=== PATIENT | male | born 1980 | race Caucasian/White ===

== ENCOUNTER 2023-08-17 08:49 | Emergency (ER) | payer OTHER, SELFPAY ==
[2023-08-17 08:49] VITALS: BP 140/90; PULSE 95; RESP 17; TEMP 36.7; O2SAT 97
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
[2023-08-17] MEDS: Omnipaque 350 MG/ML 100 ML BTL IJ (09:14)
[2023-08-17 09:16] LABS: Abs Immature Grans 0.03 10^3/uL (0.0-0.06); Absolute Basophil Count 0.03 10^3/uL (0.0-0.2); Absolute Lymphocyte Count 1.78 10^3/uL (1.2-3.4); Absolute Monocyte Count 0.33 10^3/uL (0.1-0.8); Absolute Neutrophil Count 4.33 10^3/uL (1.2-6.7); Basophils % 0.4; HCT 51.4 % (40.0-50.0); Immature Grans % 0.4; Lymphocytes % 26.6; MCV 86 fL (80-95); MPV 9.7 fL (8.0-11.0); Monocytes % 4.9; Neutrophils % 64.7; Platelet Count 305 10^3/uL (130-400); RBC 6.01 10^6/uL (4.36-5.78); RDW 13.5 % (11.8-14.1); RDW-SD 42.2 fL
[2023-08-17 09:36] LABS: ALT 82 U/L (16-63); AST 31 U/L (15-37); Albumin 3.7 g/dL (3.4-5.0); Alkaline Phosphatase 70 U/L (46-116); Anion Gap 5.8 mmol/L (3-11); BUN 11 mg/dL (7-18); Bilirubin, Total 1.4 mg/dL (0.2-1.0); CO2 28.2 mmol/L (21.0-32.0); CREATININE 1.1 mg/dL (0.70-1.30); Calcium 9.1 mg/dL (8.5-10.1); Chloride 104 mmol/L (98-107); Estimated GFR 85.95 (mL/min/1.73m2); Glucose 111 mg/dL (74-106); Potassium 3.7 mmol/L (3.5-5.1); Sodium 138 mmol/L (136-145); Total Protein 7.5 g/dL (6.4-8.2)
[2023-08-17 09:45] LABS: Diff Comment RBC Morph Reviewed; RBC Morphology Normal
[2023-08-17 09:51] VITALS: BP 126/82; PULSE 88; RESP 16; O2SAT 97
[2023-08-17] MEDS: Ketorolac 15 MG/ML VIAL 7.5 MG IVP (10:10)
[2023-08-17] MEDS: Orphenadrine 60 MG/2 ML VIAL IVP (10:11)
[2023-08-17 10:17] VITALS: BP 116/84; PULSE 84; RESP 15; O2SAT 97
== END 2023-08-17 10:35 | disposition home or self-care (01) ==
PROVIDERS: Physician Assistant; Emergency Provider Student in an Organized Health Care Education/Training Program
DX: M54.2 Cervicalgia (principal); M54.6 Pain in thoracic spine; S00.31XA Abrasion of nose, initial encounter; V48.5XXA Car driver injured in noncollision transport accident in traffic accident, initial encounter
CPT/HCPCS: 74177; 80053; 86850; 86900; 86901; 96374; 96375; 99285; J2360; 71260; 72125; 85025; 99284; J1885; J3490

== ENCOUNTER 2025-07-05 10:10 | Day surgery (SDC) | payer OTHER, SELFPAY ==
[2025-07-05] VITALS (17 sets, daily range): BP systolic 116–136; BP diastolic 60–85; PULSE 83–96; RESP 15–25; TEMP 36.5–37.4; O2SAT 93–96; BMI 38.5
[2025-07-05] MEDS: Tropicam./Phenyleph. (1/2.5%) 5 ML BTL ×3 (10:42→11:02)
--- NOTE | 2025-07-05 11:00 | W.PREOPHP ---
Assessment and Plan Assessment and plan (1) Posterior subcapsular age-related cataract of left eye: Status: Acute Assessment and plan: Assessment: Visually significant cataract of the left eye. Plan: Cataract extraction with lens implantation of the left eye. History of Present Illness History of Present Illness Chief Complaint: Progressive decreased vision, left eye Narrative: The patient is a 45-year-old male with history of progressive decreased vision in his left eye. He notes significant difficulty with glare at night and has difficulty driving. Reading is very difficult. His depth perception is off and he feels things are very dim and dark. Review of Systems All systems reviewed & are unremarkable except as noted in HPI and below PFSH All Active Problems (Reviewed 07/05/25 @ 11: by Angelo Goodwin MD) Posterior subcapsular age-related cataract of left eye (Acute) Medical History (Reviewed 07/05/25 @ 11: by Angelo Goodwin MD) Hypogonadism in male High cholesterol PTSD (post-traumatic stress disorder) Post [place] TBI (traumatic brain injury) Depression Acid reflux Diverticulitis being tx with abx Surgical History (Reviewed 07/05/25 @ 11: by Angelo Goodwin MD) Hx of colonoscopy Social History (Reviewed 07/05/25 @ 11: by Angelo Goodwin MD) Smoking/Tobacco Use Status: Former Tobacco Use Quit Date: 09/26/09 Smoking risk assessment performed?: Yes Alcohol Intake: former Drug use: Daily Substance use type: marijuana Details: t-2 smoked marijuana Housing: house Do you feel safe at home: Yes Do you feel safe in your relationship?: Yes Meds Allergies and Home Medications Allergies Allergy/AdvReac Type Severity Reaction Status Date / Time bee pollen Allergy Anaphylaxis Unverified 07/05/25 10:47 bee venom protein (honey bee) Allergy Anaphylaxis Unverified 07/05/25 10:47 mold Allergy Anaphylaxis Unverified 07/05/25 10:47 pollen extracts Allergy Anaphylaxis Unverified 07/05/25 10:47 Home Medications ?Medication ?Instructions ?Recorded ?Confirmed ?Type ciprofloxacin HCl 500 mg tablet 500 mg PO Q12H 07/02/25 07/05/25 History dibucaine 1 % topical ointment 1 applic topical QID PRN 07/02/25 07/05/25 History epinephrine 0.3 mg/0.3 mL 0.3 mg IM ONCE PRN 07/02/25 07/05/25 History injection, auto-injector (EpiPen) famotidine 10 mg tablet 10 mg PO BID 07/02/25 07/05/25 History guanfacine 1 mg tablet 1 mg PO DAILY 07/02/25 07/05/25 History hydrocortisone 1 % topical cream 1 applic topical BID PRN 07/02/25 07/05/25 History metronidazole 500 mg tablet 500 mg PO TID 07/02/25 07/05/25 History testosterone cypionate 200 mg/mL 200 mg IM DIRECTED 07/02/25 07/05/25 History intramuscular oil aspirin 81 mg tablet,delayed 81 mg PO DAILY 07/05/25 07/05/25 History release (Adult Low Dose Aspirin) ibuprofen 600 mg tablet (IBU) 600 mg PO TID 07/05/25 07/05/25 History Exam Eyes Other: Most recent ocular examination is significant for corrected visual acuity of 20/30 in each eye. Extraocular motility is normal. Intraocular pressure is 19 OD, 20 OS. Slit-lamp examination is significant for trace posterior subcapsular cataract in the right eye. A mild posterior subcapsular cataract is present in the left eye. The nuclear and cortex are clear. Funduscopic examination is significant for disc cupping of 0.3 OU with normal vessels, macula and vitreous. Inferior temporally OD there is white without pressure. Significant glare disability is noted on glare testing. Resp Auscultation: clear to auscultation bilaterally Cardio Rate: regular rate Rhythm: regular rhythm Results Last Vital Signs Temp 36.5 C 07/05/25 10:33 Pulse 92 H 07/05/25 10:33 Resp 16 07/05/25 10:33 BP 135/85 07/05/25 10:33 Pulse Ox 96 07/05/25 10:33
[2025-07-05] MEDS: Lactated Ringers 1,000 ML 80 ML IV (11:02)
--- NOTE | 2025-07-05 11:17 | W.ANESPRE ---
General Info Date of Service Date Performed: 07/05/25 Height: 6 ft Weight: 128.8 kg Body Mass Index (BMI): 38.5 Surgical Procedure: Operation Date: 07/05/25 11:25 Proposed Procedure Side Surgeon p Cataract Extraction with IOL Implant Left Angelo Goodwin MD Meds Allergies and Home Medications Allergies Allergy/AdvReac Type Severity Reaction Status Date / Time bee pollen Allergy Anaphylaxis Unverified 07/05/25 10:47 bee venom protein (honey bee) Allergy Anaphylaxis Unverified 07/05/25 10:47 mold Allergy Anaphylaxis Unverified 07/05/25 10:47 pollen extracts Allergy Anaphylaxis Unverified 07/05/25 10:47 Home Medication ?Medication ?Instructions ?Recorded ciprofloxacin HCl 500 mg tablet 500 mg PO Q12H 07/02/25 dibucaine 1 % topical ointment 1 applic topical QID PRN 07/02/25 epinephrine 0.3 mg/0.3 mL 0.3 mg IM ONCE PRN 07/02/25 injection, auto-injector (EpiPen) famotidine 10 mg tablet 10 mg PO BID 07/02/25 guanfacine 1 mg tablet 1 mg PO DAILY 07/02/25 hydrocortisone 1 % topical cream 1 applic topical BID PRN 07/02/25 metronidazole 500 mg tablet 500 mg PO TID 07/02/25 testosterone cypionate 200 mg/mL 200 mg IM DIRECTED 07/02/25 intramuscular oil aspirin 81 mg tablet,delayed 81 mg PO DAILY 07/05/25 release (Adult Low Dose Aspirin) ibuprofen 600 mg tablet (IBU) 600 mg PO TID 07/05/25 Current Visit Medications: Current Medications Generic Name Dose Route Start Last Admin Trade Name Cyq PRN Reason Stop Dose Admin Acetaminophen 1,000 mg 07/05/25 06:00 Acetaminophen 500 Mg Tab PO 08/04/25 05:59 Q4H PRN PRN Balanced Salt Solution 500 ml 07/05/25 06:00 Balanced Salt Soln.-Plus 500 Ml Bag OP 08/04/25 05:59 DIRECTED TRAVIS Ringer's Solution 1,000 mls @ 80 mls/hr 07/05/25 08:00 07/05/25 11:02 IV 08/04/25 07:59 80 mls/hr INFUSION TRAVIS Administration IV Miscellaneous Supplies 1 each 07/05/25 08:00 Iv Access IV 08/04/25 07:59 DIRECTED TRAVIS Miscellaneous Medication 0 ml 07/05/25 06:00 Prednisolone 1%, Moxifloxacin 0.5%, Bromfenac 0.09% 5.6ml Btl OS 08/04/25 05:59 DIRECTED TRAVIS Miscellaneous Medication 0 ml 07/05/25 06:00 Tropicam./Phenyleph. (1/2.5%) 5 Ml Btl OS 08/04/25 05:59 DIRECTED TRAVIS Sodium Chloride 0 ml 07/05/25 08:00 Normal Saline Flush 10 Ml Syr IVP 08/04/25 07:59 PRN PRN Sodium Chloride 0 ml 07/05/25 08:30 Normal Saline Flush 10 Ml Syr IVP 08/04/25 08:29 BID TRAVIS Sodium Chloride 0 ml 07/05/25 08:00 Normal Saline 10 Ml Vial IJ 08/04/25 07:59 DIRECTED PRN Tetracaine HCl 0 ml 07/05/25 06:00 Tetracaine 0.5% 4 Ml Btl OS 08/04/25 05:59 DIRECTED TRAVIS PFSH Active Problems Active Problems: Problem Status Onset Code Posterior subcapsular age-related cataract of left eye Acute H25.042 Medical History Medical History Hypogonadism in male High cholesterol PTSD (post-traumatic stress disorder) Post [place] TBI (traumatic brain injury) Depression Acid reflux Diverticulitis being tx with abx Surgical History Surgical History Hx of colonoscopy Tobacco Smoking/Tobacco Use Status: Former Tobacco Use Passive smoking exposure: Yes Alcohol Alcohol Intake: former Substance Use Substance use: Daily Substance use type: marijuana Details: t-2 smoked marijuana Vital Signs and Lab Results Vital Signs Most Recent Vital Signs in EMR: Most Recent Vital Signs Temp Pulse Resp BP Pulse Ox 36.5 C 92 H 16 135/85 96 07/05/25 10:33 07/05/25 10:33 07/05/25 10:33 07/05/25 10:33 07/05/25 10:33 Anesthesia Assessment and Plan Anesthesia History Personal History: No History of Anesthesia Complications Family History: No Family History of Anesthesia Complications Exercise Tolerance Exercise Tolerance: Metabolic Equivalents>4 Pertinent Negatives Pertinent Negatives: No Major Cardiovascular Symptoms or Complaints, No Major Pulmonary Symptoms or Complaints and No History of CVA/TIA Cardiac & Pulmonary Exam Cardiac Exam: Normal S1/S2 Heart Sounds Pulmonary Exam: Clear Bilateral Breath Sounds Implantable Cardiac Device Does patient have a Pacemaker or an ICD?: No Airway Exam Known Difficult Airway: No Mallampati Class: 2 Mouth Opening: Normal (> 3cm) Thyromental Distance: Greater than 3 cm Facial Hair: Full Rogers Neck Range of Motion: Limited ROM (Extension causes Migraines) Neck Circumference: Thick Teeth Condition: Normal Dentition and Loose or Chipped ASA Classification ASA Score: ASA 2 Emergency Case?: No NPO Status NPO Status: NPO Clears >2 hours, Solids >8 hours (Active GERD today) Anesthesia Plan Resuscitation Status: Full Code Anesthesia Technique: General Anesthesia (RSI) Airway Planned: Endotracheal Tube Monitors Used: Standard Monitors Preoperative Comments:: TBI with cluster headaches and some forgetfullness. Does not tolerate anything near eyes, will be a GETA with RSI today.
[2025-07-05] MEDS: Prednisolone 1%, Moxifloxacin 0.5%, Bromfenac 0.09% 5.6ML BTL 5.6 ML (11:42)
[2025-07-05] MEDS: Tetracaine 0.5% 4 ML BTL (11:43)
[2025-07-05] MEDS: Lidocaine 1% Pres-Free 5 ML VIAL (11:43)
[2025-07-05] MEDS: Phenylephrine/Lidocaine (15/10) MG/ML 1 ML VIAL (11:44)
[2025-07-05] MEDS: Moxifloxacin-PF 1 MG/ML VIAL (11:44)
[2025-07-05] MEDS: Duovisc Viscoelastic System EACH 1 EACH (11:45)
[2025-07-05] MEDS: Balanced Salt Soln.-PLUS 500 ML BAG OP (11:46)
[2025-07-05] MEDS: Povidone-Iodine Ophth 30 ML BTL (11:46)
--- NOTE | 2025-07-05 12:04 | ROE_ITS ---
Operative Note Operative Note PRE-OP DIAGNOSIS: Posterior subcapsular cataract, left eye POST-OP DIAGNOSIS: same PROCEDURE: Cataract extraction using phacoemulsification with intraocular lens implant, left eye SURGEON: Angelo Goodwin ANESTHESIA TYPE: Local By Surgeon and MAC Refer to Anesthesia Record PATHOLOGY: none sent COMPLICATIONS: None Patient was transported to: same day Patient's condition: stable Implants: Len and Len Tecnis Eyhance [id number] Indications: Progressive decreased vision due to cataract, left eye Procedure Description: CATARACT SURGERY OPERATIVE REPORT PREOPERATIVE DIAGNOSIS: 1. Posterior subcapsular cataract, left eye POSTOPERATIVE DIAGNOSIS: Same OPERATION: 1. Cataract extraction using phacoemulsification with posterior chamber intraocular lens implant, left eye. IOL: IOL [employer] Gunner/Model: Len & Len Tecnis Eyhance [id number] IOL Power: + 15.5 diopters IOL Serial Number: [id number] Optic Diameter: 6.0 mm Haptic/Overall Diameter: 13.0 mm PHACO INFO: Wu Prime Wire Mediaurion Vision System with OZil and Active Fluidics Cumulative Dispersed Energy (CDE): 0.0 seconds SURGEON: Angelo Goodwin MD, RUTH ANN ANESTHESIA: Monitored A [facility] [place] with local sub-tenon's anesthetic infiltration COMPLICATIONS: None SPECIMENS: None INDICATIONS FOR PROCEDURE: The patient is a 45-year-old male with history of posterior subcapsular cataract in the left eye. He has become increasingly symptomatic and finds his vision intolerable. The option of cataract surgery was offered to the patient and he wished to proceed. Due to his PTSD/anxiety/claustrophobia, surgery will have to be performed under general anesthesia. See office notes for detailed informa tion. PROCEDURE: The correct surgical eye was identified and marked as the left eye and the pupil was dilated in the preoperative area using mydriatics and cycloplegics. The dilated pupil size was 8.0 mm. The patient was brought to the operating room where cardiopulmonary monitoring was instituted and surgical time-out was performed, confirming the correct operative eye and IOL power. General anesthesia with an endotracheal tube was instituted. Topical anesthesia was administered and ophthalmic povidone-iodine 5% was instilled into the conjunctival fornices. The maximus-ocular area was prepped with Betadine 10% solution and draped in the usual sterile fashion for intraocular surgery, including an aperture drape. A Tegaderm transparent film dressing was cut in half and used to cover the lashes and lid margins. Care was taken to sequester the lashes and lid margins under the Tegaderm dressing. A lid speculum was placed between the lids of the operative eye and the Wu LuxOR Revalia operating microscope was maneuvered into position. Grady scissors were then used to make a conjunctival buttonhole approximately 6mm posterior to the limbus in the inferonasal quadrant. Blunt dissection was carried out to expose bare sclera, and a blunt-tipped sub-tenon?s anesthesia cannula was introduced and passed posteriorly along the globe where non- preserved plain lidocaine was injected into posterior sub-Tenon?s space. A sideport knife was used to make a paracentesis port. Intraocular phenylephrine/lidocaine was injected into the anterior chamber.. The anterior chamber was filled with viscoelastic. A keratome knife was used to construct a 2-plane near-clear corneal tunnel extending 2.0mm into clear cornea. A flap was raised on the anterior capsule and capsulorhexis forceps were used to complete a continuous curvilinear capsulorhexis of 5.5 mm. Balanced salt solution was then used to perform cortical cleaving hydrodissection and nuclear hydrodelineation until the lens could be freely rotated within the capsular bag. The lens nucleus was then disassembled and removed within the capsular bag and iris plane using phacoemulsification. The lens nucleus was very soft, no ultrasonic energy had to be employed. Residual cortical material was removed using the irrigation/aspiration handpiece. The posterior capsule was carefully polished to remove as much residual lens epithelial cells as safely possible. Extensive capsular polishing was undertaken. The underside of the anterior capsular rim was polished using the Azubu nucleus manipulator. The capsular bag was then inflated and the anterior chamber deepened with viscoelastic. The lens implant described above was inserted into the capsular bag using the Len and Len Simplicity pre- loaded injector. A Kuglen hook was used to dial the IOL into position. Residual viscoelastic was then removed first from posterior to the IOL, then from the anterior chamber using the I/A handpiece. The lens implant was noted to center nicely within the capsular bag. The incisions were stromally hydrated, and the anterior chamber was reformed using BSS. Then 0.5cc of moxifloxacin 1.0mg/ml were injected into the capsular bag and anterior chamber. The incisions were checked with a Weck spear and found to be secure. Several drops of ophthalmic povidone-iodine 5% were then applied to the eye followed by two drops of Imprimis combination prednisolone/moxifloxacin/nepafenac solution. The drapes were removed and a clear plastic protective eye shield was placed over the eye. The patient was then returned to Same Day Surgery in stable condition. Date of Procedure: 07/05/25
--- NOTE | 2025-07-05 12:04 | W.PM.DSUDISC ---
Date of service: 07/05/25 Discharge Plan Disposition Patient Disposition: Home Discharge Details Attending Provider: Angelo Goodwin Home Meds and New Rx's Prescriptions: No Action dibucaine 1 % ointment 1 applic topical QID PRN epinephrine [EpiPen] 0.3 mg/0.3 mL auto-injector 0.3 mg IM ONCE PRN famotidine 10 mg tablet 10 mg PO BID hydrocortisone 1 % cream 1 applic topical BID PRN testosterone cypionate 200 mg/mL oil 200 mg IM DIRECTED guanfacine 1 mg tablet 1 mg PO DAILY metronidazole 500 mg tablet 500 mg PO TID ciprofloxacin HCl 500 mg tablet 500 mg PO Q12H aspirin [Adult Low Dose Aspirin] 81 mg tablet,delayed release (DR/EC) 81 mg PO DAILY ibuprofen [IBU] 600 mg tablet 600 mg PO TID Discharge Instructions Stand Alone Forms: [facility] Post-Op Cataract, Ja Retana ([facility]) Discharge Orders Discharge Orders: Discharge Order (Routine); Ordered 07/05/25 Ordered By: Angelo Goodwin DS: Diagnosis Discharge Diagnosis (1) Posterior subcapsular age-related cataract of left eye: Status: Resolved
[2025-07-05] MEDS: Ibuprofen 600 MG TAB PO (13:30)
--- NOTE | 2025-07-05 13:36 | W.ANESPOSTOP ---
Postoperative Evaluation Date, Time and Location Date Performed: 07/05/25 Time Performed: 13:36 Patient Location: [facility] Unit Vital Signs Most Recent Imported Vital Signs: Most Recent Vital Signs Temp Pulse Resp BP Pulse Ox 36.8 C 88 16 119/77 94 07/05/25 13:26 07/05/25 13:26 07/05/25 13:26 07/05/25 13:26 07/05/25 13:26 Pain Score Most Recent Pain Score: Most Recent Pain Score Pain Level 4 07/05/25 13:26 Assessment Mental Status: Awake (Alert & Oriented to Patient Baseline) Airway and Respiratory Function: Patent airway with normal (patient baseline) respiratory exam Cardiovascular Function: Hemodynamically Stable Hydration Status: Adequately Hydrated Nausea & Vomiting: No Nausea or Vomiting Pain: Pain is tolerable per patient (Patient is reporting pain in right shoulder and has a headache. Ordered Ibuprofen. Asked he get in contact with us if it worsens prior to the postop phone call on Tuesday) Peripheral Nerve Block: Other (Local by Dr. Goodwin)
== END 2025-07-05 13:50 | disposition home or self-care (01) ==
LOC: SUR 10:11
PROVIDERS: Visit Provider Ophthalmology
PROC: (CPT 66984; principal; 2025-07-05 11:15)
DX: H25.042 Posterior subcapsular polar age-related cataract, left eye (principal); Z87.820 Personal history of traumatic brain injury
CPT/HCPCS: 66984; 00123; V2632; J1100; J2003; J2250; J2405; J2704